=== PATIENT | female | born 1980 | race Two or more races ===

== ENCOUNTER 2024-08-21 10:24 | Emergency (ER) | payer OTHER ==
[~2024-08-21] VITALS: Ht 157.5 cm; Wt 99.0 kg
--- NOTE | 2024-08-21 10:45 | ED.PDOC ---
History of Present Illness HPI Comments This is a 44-year-old female who comes in with chief complaint of some shortness for breath especially when she lays flat. The patient states that she is 36 weeks and is followed by Dr. Burgess. She states that the symptoms started a few days ago and she did developed some fever for three days. Upon arrival, patient was not wheezing and does not look short of breath. The patient has no other complaints at this time. Chief Complaint: Shortness of Breath Time Seen by MD: 10:32 Reviewed Notes: Nurses Notes, Medications, Allergies (No allergies to medications) Information Source: Patient Mode of Arrival: Ambulatory Severity: Mild Timing: Days Duration: Intermittent Prehospital treatment: None Associated signs and symptoms Shortness a breath but no chills. The patient was was complaining of some fever Past Medical History PAST MEDICAL HISTORY: GERD Surgical History: , Denies all surgeries CONSTRUCTION FLAGGER History: No Pertinent CONSTRUCTION FLAGGER History Family History Family History: No family hx of Cancer, No family hx of DM, No family hx of Heart amol Social History Smoker: Non-Smoker Alcohol: Denies ETOH Use Drugs: Denies Drug Use Lives In: Home Constitutional: denies: chills, diaphoresis, fatigue, fever, malaise, sweats, weakness, others EENTM: denies: blurred vision, double vision, ear bleeding, ear discharge, ear drainage, ear pain, ear ringing, eye pain, eye redness, hearing loss, mouth pain, mouth swelling, nasal discharge, nose bleeding, nose congestion, nose pain, photophobia, tearing, throat pain, throat swelling, voice changes, others Respiratory: reports: shortness of breath; denies: cough, hemoptysis, orthopnea, SOB at rest, SOB with excertion, stridor, wheezing, others Cardiovascular: denies: chest pain, dizzy spells, diaphoresis, Dyspnea on exertion, edema, irregular heart beat, left arm pain, lightheadedness, palpitations, PND, syncope, others Gastrointestinal: denies: abdomen distended, abdominal pain, blood streaked bowels, constipated, diarrhea, dysphagia, difficulty swallowing, hematemesis, melena, nausea, poor appetite, poor fluid intake, rectal bleeding, rectal pain, vomiting, others Genitourinary: reports: ; denies: abnormal vagina bleeding, burning, dyspareunia, dysuria, flank pain, frequency, hematuria, incontinence, pain, vagina discharge, urgency, others Neurological: denies: dizziness, fainting, headache, left sided numbness, left sided weakness, numbness, paresthesia, pre-existing deficit, right sided numbness, right sided weakness, seizure, speech problems, tingling, tremors, weakness, others Musculoskeletal: denies: back pain, gout, joint pain, joint swelling, muscle pain, muscle stiffness, neck pain, others Integumetry: denies: bruises, change in color, change in hair/nails, dryness, laceration, lesions, lumps, rash, wounds, others Allergic/Immunocompromised: denies: Difficulty Healing, Frequent Infections, Hives, Itching, others Hematologic/Lymphatic: denies: anemia, blood clots, easy bleeding, easy bruising, swollen glands, others Endocrine: denies: excessive hunger, excessive sweating, excessive thirst, excessive urination, flushing, intolerance to cold, intolerance to heat, unexplained weight gain, unexplained weight loss, others Psychiatric: denies: anxiety, bipolar disorder, depression, hopeless, panic disorder, schizophrenia, sleepless, suicidal, others Physical Exam General Appearance: No Apparent Distress HEENT: Normal ENT Inspection, Pharynx Normal, TMs Normal Neck: Full Range of Motion, Non-Tender, Normal, Normal Inspection Respiratory: Chest Non-Tender, Lungs Clear, No Accessory Muscle Use, No Respiratory Distress, Normal Breath Sounds Cardiovascular: No Edema, No JVD, No Murmur, No Gallop, Normal Peripheral Pulses, Regular Rate/Rhythm Breast Exam: Deferred Gastrointestinal: Non Tender, No Pulsatile Mass, Normal Bowel Sounds, Other (Gravid uterus) Genitalia: Deferred Pelvic: Deferred Rectal: Deferred Extremities: No calf tenderness, Normal capillary refill, Normal inspection, Normal range of motion, Non-tender, No pedal edema Musculoskeletal : Apperance: Normal Neurologic: Alert, water resource engineer II-XII nml as Tested, No Motor Deficits, Normal Affect, Normal Mood, No Sensory Deficits Cerebellar Function: Normal Reflexes: Normal Skin: Dry, Normal Color, Warm Lymphatic: No Adenopathy Was a procedure done? Was a procedure done?: No Differential Dx Considerations may include: Shortness a breath, generalized weakness, X-Ray, Labs, Meds, VS The patient was 96% upon arrival to the emergency department's The patient was being discharged to labor and delivery We did swab the patient for influenza a and influenza B Time of 1ST Reevaluation: 10:44 Reevaluation 1ST: Unchanged Patient Education/Counseling: Diagnosis, Treatment, Prognosis, Need For Follow Up Family Education/Counseling: No Family Present Departure 1 Departure Time of Disposition: 10:44 Impression: Primary Impression: Shortness of breath during Disposition: 01 HOME / SELF CARE / HOMELESS Condition: Fair Discharged With: Self Critical Care Note Critical Care Time?: No Stability Stability form required: No Heart Score Heart Score: Heart Score Response (Comments) Value History N/A 0 EKG N/A 0 Age N/A 0 Risk Factors N/A 0 Troponin N/A 0 Total 0 SHELIA GEE MD Aug 21, 2024 10:45
[2024-08-21 11:41] LABS: Rapid Influenza A Negative (Negative); Rapid Influenza B Negative (Negative)
--- NOTE | 2024-08-21 12:35 | DVH ---
BIOPHYSICAL PROFILE HISTORY: Hyperemesis TECHNIQUE: Multiple transabdominal real-time grayscale sonographic images through the gravid uterus of the fetus with duplex Doppler color flow and M-mode spectral analysis FINDINGS: BIOPHYSICAL PROFILE: breathing score: 2 movement score: 2 tone score: 2 Quantitative KAREN score: 2 (KAREN: 18.5 Cm.) Total score: 8 The cervix was not seen Single live fetus in cephalic presentation. heart rate 130 beats per minute. Grade II anterior fundal placenta without previa or abruption IMPRESSION: Biophysical profile score: 8/8
[2024-08-21] MEDS: LACTATED RINGER'S 1,000 ML IV ONE (14:43)
--- NOTE | 2024-08-21 14:43 | ED.PDOC ---
SOB-HPI HPI Comments 44Y F with PMHx GERD presents to ED for chief complaint SOB x3days with cough, wheezing, and intermittent fever. Pt states symptoms worsen when laying down. Pt has used nebulizer before but has never been diagnosed with asthma. Pt's children have asthma. Pt is currently 36weeks and was cleared by L&D. 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 Pt is being f/u by Dr. Lam and has an appt on 08/25/2024. Chief Complaint: Shortness of Breath Time Seen by MD: 14:20 Reviewed notes: Nurses Notes, Medications, Allergies Information Source: Patient Mode of Arrival: Ambulatory Severity: Moderate Timing: Days Duration: Since onset Context: At Rest PE Risk Factors: None History of: None Modifying Factors: Laying flat Associated Signs and Symptoms: Fever, Wheeze, Cough Past Medical History PAST MEDICAL HISTORY: GERD Surgical History: BREEDER HEN SERVICE TECHNICIAN History: No Pertinent BREEDER HEN SERVICE TECHNICIAN History Family History Family History: No family hx of Cancer, No family hx of DM, No family hx of Heart amol Social History Smoker: Non-Smoker Alcohol: Denies ETOH Use Drugs: Denies Drug Use Lives In: Home Constitutional: reports: fever; denies: chills, diaphoresis, fatigue, malaise, sweats, weakness, others EENTM: denies: blurred vision, double vision, ear bleeding, ear discharge, ear drainage, ear pain, ear ringing, eye pain, eye redness, hearing loss, mouth pain, mouth swelling, nasal discharge, nose bleeding, nose congestion, nose pain, photophobia, tearing, throat pain, throat swelling, voice changes, others Respiratory: reports: cough, shortness of breath, wheezing; denies: hemoptysis, orthopnea, SOB at rest, SOB with excertion, stridor, others Cardiovascular: denies: chest pain, dizzy spells, diaphoresis, Dyspnea on exertion, edema, irregular heart beat, left arm pain, lightheadedness, palpitations, PND, syncope, others Gastrointestinal: denies: abdomen distended, abdominal pain, blood streaked bowels, constipated, diarrhea, dysphagia, difficulty swallowing, hematemesis, melena, nausea, poor appetite, poor fluid intake, rectal bleeding, rectal pain, vomiting, others Genitourinary: reports: ; denies: abnormal vagina bleeding, burning, dyspareunia, dysuria, flank pain, frequency, hematuria, incontinence, pain, vagina discharge, urgency, others Neurological: denies: dizziness, fainting, headache, left sided numbness, left sided weakness, numbness, paresthesia, pre-existing deficit, right sided numbness, right sided weakness, seizure, speech problems, tingling, tremors, weakness, others Musculoskeletal: denies: back pain, gout, joint pain, joint swelling, muscle pain, muscle stiffness, neck pain, others Integumetry: denies: bruises, change in color, change in hair/nails, dryness, laceration, lesions, lumps, rash, wounds, others Allergic/Immunocompromised: denies: Difficulty Healing, Frequent Infections, Hives, Itching, others Hematologic/Lymphatic: denies: anemia, blood clots, easy bleeding, easy bruising, swollen glands, others Endocrine: denies: excessive hunger, excessive sweating, excessive thirst, excessive urination, flushing, intolerance to cold, intolerance to heat, unexplained weight gain, unexplained weight loss, others Psychiatric: denies: anxiety, bipolar disorder, depression, hopeless, panic disorder, schizophrenia, sleepless, suicidal, others All Other Systems: Reviewed and Negative Physical Exam General Appearance: No Apparent Distress, Normal HEENT: Normal ENT Inspection, Pharynx Normal (exccept for postnasal discharge), TMs Normal, Other (clear postnasal drips) Neck: Full Range of Motion, Non-Tender, Normal, Normal Inspection Respiratory: Chest Non-Tender, Lungs Clear, No Accessory Muscle Use, No Respiratory Distress, Normal Breath Sounds Cardiovascular: No Edema, No JVD, No Murmur, No Gallop, Normal Peripheral Pulses, Regular Rate/Rhythm Breast Exam: Deferred Gastrointestinal: No Organomegaly, Non Tender, No Pulsatile Mass, Normal Bowel Sounds, Soft Genitalia: Deferred Pelvic: Deferred Rectal: Deferred Extremities: No calf tenderness, Normal capillary refill, Normal inspection, Normal range of motion, Non-tender, No pedal edema Musculoskeletal : Apperance: Normal Neurologic: Alert, tankage supervisor II-XII nml as Tested, No Motor Deficits, Normal Affect, Normal Mood, No Sensory Deficits Cerebellar Function: Normal Reflexes: Normal Skin: Dry, Normal Color, Warm Lymphatic: No Adenopathy Was a procedure done? Was a procedure done?: No Differential Dx Differential Diagnosis: Anxiety, Asthma, Bronchitis, CHF, COPD, Myocardial infarction, Panic Attack, Pneumonia, Pneumothorax, Pulmonary Embolism, Respiratory Distress, URI X-Ray, Labs, Meds, VS Vital Signs Date Time Temp Pulse Resp B/P (MAP) Pulse Ox O2 Delivery O2 Flow Rate FiO2 08/21/24 11:00 96 08/21/24 10:51 97.7 107 110/74 (86) 95 97.7 08/21/24 10:37 98.3 102 19 107/47 (67) 96 Lab Test 08/21/24 10:42 Range/Units Influenza Type A Antigen Negative Negative Influenza Type B Antigen Negative Negative Time of 1ST Reevaluation: 14:50 Reevaluation 1ST: Unchanged Time of 2ND Reevaluation: 15:18 Reevaluation 2ND: Improved Patient Education/Counseling: Diagnosis, Treatment, Prognosis, Need For Follow Up Family Education/Counseling: No Family Present Additional Information I reviewed the following notes from patient's past medical encounters: None The following tests were ordered, and results were reviewed by me: None Additional Information was gathered from interviewing the following independent historians: None I reviewed and agreed with the following test results read by other providers: None I discussed treatment and results with medical personnel. pt does not have signs of preeclampsia. she is not febrile, has no audible wheezes. she feels wheezing when she is supine. her lungs are clear. she has no edema, calf pain, or asymmetry. she does have clear postnasal discharge, which may be responsible for the sensation of wheezes on supine position. i will start her on ipratropium nasal spray and albuterol as needed Departure 1 Departure Time of Disposition: 10:44 Impression: Primary Impression: Shortness of breath during Additional Impression: Viral URI with cough Disposition: 01 HOME / SELF CARE / HOMELESS Condition: Fair e-Prescriptions No Active Prescriptions or Reported Meds Discharged With: Self Critical Care Note Critical Care Time?: No Stability Stability form required: No Heart Score Heart Score: Heart Score Response (Comments) Value History N/A 0 EKG N/A 0 Age N/A 0 Risk Factors N/A 0 Troponin N/A 0 Total 0 I personally scribed for TANJA LEVY MD ([email or web address]) on 08/21/24 at 14:43. Electron ically submitted by Heike Aguilar ([email or web address]). TANJA LEVY MD Aug 21, 2024 14:43
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
[2024-08-21 14:47] VITALS: BP 107/55; TEMP 98.3
[2024-08-21] MEDS: ALBUTEROL SULF 2.5 MG/0.5ML(0.5%) NEB SOLN NEB ONE (14:53)
[2024-08-21 16:04] VITALS: PULSE 78; RESP 18; O2SAT 98
--- NOTE | 2024-08-21 19:11 | ECG ---
[facility] Test Date: 2024-08-21 Test Time: 11:00:52 Pat Name: GENARO MAZA Department: ER Room: Gender: F Remote Sensing Technologist: KEMAL : 1980 Requested By: SHELIA GEE Order Number: [id number] Reading MD: Syd Chandler Measurements Intervals [place]oten Rate: 96 P: -36 IL: 131 QRS: 48 QRSD: 88 T: 5 QT: 332 QTc: 420 Interpretive Statements Sinus rhythm Electronically Signed On 08-22-2024 13:11:59 PST by Syd Chandler Please click the below link to view image of tracing.
--- NOTE | 2024-08-22 16:04 | DVHDS2 ---
Physician Discharge Progress N Final Diagnosis: sob Operations or Procedures: Operations or Procedures nst,sono Condition on Discharge: Undetermined Disposition: Home Discharge Instructions: Diet: Regular Activity: Light activity Medications: na Follow Up Care: Specialist: to er Discharge Statement: "Patient was advised to return to the ER or call 911 if any headaches, dizz iness, shortness of breath, chest pain, abdominal pain, bleeding, fevers, or worsening of medical condition. Patient was counseled about treatment plan, medications, possible side effects, patientverbalized understanding. All questions were answered to the best of my ability. This discharge took greater then 30 minutes in planning, reviewing documentation, counseling the patient, and discussing with other team members." ILEANA RICCI DO Aug 22, 2024 16:04
== END 2024-08-21 16:07 | disposition home or self-care (01) ==
LOC: ER 10:24 → LDRP 10:37 → UNDOADMOB 10:37 → ER 10:45 → LDRP 11:10 → UNDOADMOB 11:10 → ER 16:07
DX: O99.513 Diseases of the respiratory system complicating pregnancy, third trimester (principal); R06.02 Shortness of breath; J06.9 Acute upper respiratory infection, unspecified; B97.89 Other viral agents as the cause of diseases classified elsewhere; R05.9 Cough, unspecified; K21.9 Gastro-esophageal reflux disease without esophagitis; Z3A.36 36 weeks gestation of pregnancy
CPT/HCPCS: 59025; 76818; 81002; 87804; 93005; 94640; 94760

== ENCOUNTER 2024-09-04 19:09 | Observation (INO) | payer OTHER ==
[~2024-09-04] VITALS: Ht 160 cm; Wt 99.8 kg
--- NOTE | 2024-09-04 19:58 | DVH ---
BIOPHYSICAL PROFILE HISTORY: AMA TECHNIQUE: Multiple transabdominal real-time grayscale sonographic images through the gravid uterus of the fetus with duplex Doppler color flow and M-mode spectral analysis FINDINGS: BIOPHYSICAL PROFILE: breathing score: 2 movement score: 2 tone score: 2 Quantitative KAREN score: 2 (KAREN: 20.6 Cm.) Total score: 8 4/8 Single live fetus in cephalic presentation. heart rate 101 beats per minute. Posterior Grade 3 placenta without previa or abruption Single live fetus at 38 weeks 1 day Biophysical profile score 8/8 corresponding to an BERNABE of 09/17/2024 IMPRESSION: 1. Biophysical profile score: 8/8
== END 2024-09-04 21:08 | disposition home or self-care (01) ==
LOC: LDRP 19:09
PROVIDERS: ADMIT Obstetrics & Gynecology; ATTEND Obstetrics & Gynecology
DX: O21.0 Mild hyperemesis gravidarum (principal); O09.513 Supervision of elderly primigravida, third trimester; Z3A.38 38 weeks gestation of pregnancy; Z79.899 Other long term (current) drug therapy; Z88.5 Allergy status to narcotic agent
CPT/HCPCS: 59025; 76818; 81002; 94760; G0378

== ENCOUNTER → 2024-09-05 | Outpatient (CLI) | payer OTHER ==
[~2024-09-05] MED LIST: DOCU-94 PO; FER325T PO; HYDR-4072 PO; IBUP-1456 PO; PREN-96 PO
[2024-09-05 12:02] LABS: Basophils # (auto) 0 10 ^3/uL (0-0.2); Basophils % (auto) 0.5 % (0.0-2.0); Eosinophils # (auto) 0 10 ^3/uL (0-0.8); Eosinophils % (auto) 0.5 % (0.0-7.0); Hematocrit 35.6 % (36.0-46.0); Hemoglobin 12.2 g/dL (12.2-16.2); Lymphocytes # (auto) 1.4 10 ^3/uL (0.4-5.4); Mean Corpuscular Hemoglobin 28.7 pg (28.0-32.0); Mean Corpuscular Hgb Conc. 34.3 g/dL (32.0-36.0); Mean Corpuscular Volume 83.5 fL (80.0-100.0); Monocytes # (auto) 0.5 10 ^3/uL (0-1.3); Monocytes % (auto) 5.8 % (0.0-12.0); Neutrophils % (auto) 75.2 % (37.0-80.0); Nucleated Red Blood Cells % 0.1 %; Platelet Count (auto) 208 10^3/uL (140-450); Red Blood Cells 4.27 10^6/uL (4.0-5.20); Red Cell Distribution Width 15.6 % (11.8-14.3)
[2024-09-06 06:06] LABS: RPR Non Reactive (Non Reactive)
[2024-09-07 06:06] LABS: Chlamydia Trachomatis, NAA Negative (Negative); Neisseria gonorrhoeae, NAA Negative (Negative)
== END | disposition home or self-care (01) ==
LOC: LAB 09:58
PROVIDERS: ATTEND Obstetrics & Gynecology
DX: Z34.80 Encounter for supervision of other normal pregnancy, unspecified trimester (principal); Z3A.00 Weeks of gestation of pregnancy not specified
CPT/HCPCS: 36415; 85025; 86592

== ENCOUNTER 2024-09-09 04:13 | Inpatient (IN) | payer OTHER ==
[2024-09-08 22:19] LABS: Basophils # (auto) 0 10 ^3/uL (0-0.2); Basophils % (auto) 0.4 % (0.0-2.0); Eosinophils # (auto) 0.1 10 ^3/uL (0-0.8); Eosinophils % (auto) 0.7 % (0.0-7.0); Hematocrit 36.8 % (36.0-46.0); Hemoglobin 12.3 g/dL (12.2-16.2); Lymphocytes # (auto) 2.1 10 ^3/uL (0.4-5.4); Lymphocytes % (auto) 18.3 % (10.0-50.0); Mean Corpuscular Hgb Conc. 33.3 g/dL (32.0-36.0); Monocytes # (auto) 0.8 10 ^3/uL (0-1.3); Monocytes % (auto) 7.2 % (0.0-12.0); Neutrophils # (auto) 8.6 10 ^3/uL (1.6-8.6); Neutrophils % (auto) 73.4 % (37.0-80.0); Platelet Count (auto) 214 10^3/uL (140-450); Red Blood Cells 4.38 10^6/uL (4.0-5.20); Red Cell Distribution Width 15.6 % (11.8-14.3); White Blood Cell 11.7 10^3/uL (4.4-10.8)
[2024-09-08 22:37] LABS: Urine Amorphous Crystal FEW /hpf (None Seen); Urine Bacteria MOD /hpf (None Seen); Urine Blood Negative /uL (Negative); Urine Clarity Clear (Clear); Urine Color Light-Yellow (Yellow); Urine Protein, UAD Negative (Negative); Urine Squamous Epithelial Cell FEW /hpf (<5); Urine Urobilinogen Normal (Negative); Urine WBC 2 /HPF (0-5); Urine pH 6.5 (5.0-9.0)
[2024-09-08 22:38] LABS: INR 0.95 (0.9-1.15); Partial Thromboplastin Time 29.1 SEC (24.5-34.5); Prothrombin Time 10.1 sec (9.3-11.8)
[2024-09-08 22:49] LABS: Alanine Aminotransferase 15 U/L (7-40); Albumin 3.6 g/dL (3.2-4.8); Alkaline Phosphatase 92 U/L (46-116); Anion Gap 10 (5-15); Aspartate Aminotransferase 13 U/L (13-40); BUN/Creatinine Ratio 17.4 (10.0-20.0); Blood Urea Nitrogen 8 mg/dL (9-23); Calcium 9.6 mg/dL (8.7-10.4); Carbon Dioxide 22 mmol/L (20-31); Chloride 105 mmol/L (98-107); Glucose 104 mg/dL (74-106); Potassium 3.8 mmol/L (3.5-5.1); Sodium 137 mmol/L (136-145)
[2024-09-08 22:50] LABS: Bilirubin, Total 0.3 mg/dL (0.2-1.0); Total Protein 6.1 g/dL (5.7-8.2)
[2024-09-08 22:56] LABS: Amphetamine Screen, Urine Neg (NEGATIVE); Barbiturate Scree,Urine Neg (NEGATIVE); Benzodiazephine Screen, Urine Neg (NEGATIVE); Cannabinoid Screen, Urine Neg (NEGATIVE); Cocaine Screen, Urine Neg (NEGATIVE); Opiate Scree,Urine Neg (NEGATIVE); Phencyclidine Screen, Urine Neg (NEGATIVE)
[2024-09-09] VITALS (17 sets, daily range): BP systolic 90–116; BP diastolic 46–71; PULSE 76–95; RESP 16–24; TEMP 98.2–98.8; O2SAT 94–100
[~2024-09-09] VITALS: Ht 157.5 cm; Wt 99.8 kg
[2024-09-09 00:29] LABS: Hepatitis B Surface Antigen Negative (Negative)
[2024-09-09 00:46] LABS: Hepatitis C Antibody Negative (Negative)
--- NOTE | 2024-09-09 05:30 | DVHHP ---
ADMIT DATE: 09/09/2024 CHIEF COMPLAINT: Labor pain. HISTORY OF PRESENT ILLNESS: The patient is a 44-year-old 3, para 2 with a due date of 09/17/2024, estimated gestational age of 38 and 6/7, admitted for early labor. The patient has been coming in complaining of uterine contractions. She had 2 previous C-sections. She wishes to have repeat section. She does not want any tubal ligation. She denies having any vaginal bleeding or rupture of membrane. PAST MEDICAL HISTORY: None. PAST SURGICAL HISTORY: . SOCIAL HISTORY: None. FAMILY HISTORY: None. OBSTETRIC AND GYNECOLOGIC HISTORY: Blood type O positive, rubella immune, two sections. REVIEW OF SYSTEMS: Consistent with HPI. PHYSICAL EXAMINATION: VITAL SIGNS: Stable, afebrile. HEENT: Within normal limits. CARDIOVASCULAR: Regular rate and rhythm. LUNGS: Clear to auscultation. BREASTS: Symmetrical. No masses. ABDOMEN: Gravid. Positive heart. PELVIC: Cervix 1 cm soft. Uterine contractions every 3 to 5 minutes. EXTREMITIES: No clubbing, cyanosis or edema. IMPRESSION: * Intrauterine at 38+ weeks in early labor. * Desires repeat section. * Previous section x 2. * Advanced maternal age. PLAN: Repeat section. Informed consent obtained. Risks, complication of surgery including infection, bleeding, hematoma formation, injury to bowel, bladder, surrounding organs, possibility of DVT, pulmonary embolism, risk of anesthesia discussed with the patient. Options reviewed. All questions answered. The patient fully understands. She wishes to proceed with planned procedure. Possibility of DVT, pulmonary embolism, risk of anesthesia discussed with the patient. Possibility of infection, need for further surgery discussed with the patient. The patient fully understands. She wishes to proceed with planned procedure. All questions answered to patient's satisfaction. DO RAVIN Larsen/GROVER TID: [id number] RECEIPT: [id number]
[2024-09-09] MEDS ORDERED: fentaNYL CITRATE 100 MCG/2 ML VL ONE (06:59)
[2024-09-09] MEDS ORDERED: MORPHINE SULF PF 5 MG/10 ML VIAL ONE (06:59)
[2024-09-09] MEDS: LACTATED RINGER'S 1,000 ML IV ONE (07:00)
[2024-09-09] MEDS ORDERED: ONDANSETRON HCL 4 MG/2 ML VIAL ONE (07:02)
[2024-09-09] MEDS ORDERED: DexAMETHasone SOD PHOS 10MG/1ML VIAL INJ ONE (07:03)
[2024-09-09] MEDS ORDERED: OXYTOCIN 10UNIT/ML 1ML VIAL ONE (07:03)
[2024-09-09] MEDS: GUM (CHEWING) 1 GUM CHEW CHEW ONE (07:15)
[2024-09-09] MEDS ORDERED: ONDANSETRON HCL 4 MG/2 ML VIAL IV PRN (07:15)
[2024-09-09] MEDS ORDERED: KETOROLAC TROMETH 30 MG/ML 1ML VIAL ONE (07:30)
[2024-09-09] MEDS: LACTATED RINGER'S 1,000 ML IV SCH (09:01)
[2024-09-09] MEDS: ceFAZolin 2 GM/D5W50ml 50 ML IV ONE (09:08)
[2024-09-09] MEDS: LIDOCAINE W/ EPINEPHRINE 1% 20ML VIAL ONE (10:36)
[2024-09-09] MEDS: BUPIVACAINE 0.5% P/F INJ 10 ML VIAL ONE (10:37)
[2024-09-09] MEDS: LACT. RINGERS/OXYTOCIN 20UNITS 1,000 ML IV ONE (10:37)
--- NOTE | 2024-09-09 11:38 | DVHOP2 ---
Operative Report DATE OF OPERATION:09/09/24 PREOPERATIVE DIAGNOSES: [iup at 38wks in labor,desires rcs,previous csx2,ama,morbid obesity] POSTOPERATIVE DIAGNOSES: [same,nuchal cordx1] OPERATION PERFORMED: Repeat Section FINDINGS: [b] infant. Apgars of [8] and [9]. Weight crying tone. [clear] amniotic fluid. Placenta and three-vessel were intact. Normal tubes, ovaries, and uterus. . SURGEON: Aarti Lam D.O. MALTHOUSE LABORER: missile technician, oly]. akash ANESTHESIOLOGIST: Екатерина montez ANESTHESIA: [Duramorph spinal, regional]. COMPLICATIONS: [none]. ESTIMATED BLOOD LOSS: [800] mL. BLOOD PRODUCTS USED: [none]. PROCEDURE IN DETAIL: The patient was taken to the operating room, placed in sitting position, and spinal was placed without difficulty. She was then prepped and draped in a sterile fashion. A low Pfannenstiel incision was made scapel. At this point, it was carried down through the rectus fascia, nicked in the midline, and carried laterally. The rectus muscles were in the midline. Peritoneum was identified and entered with sharp dissection. Vesicouterine peritoneum was taken off the lower uterine segment. A lower uterine transverse incision was made with a scalpel down the chorionic membranes, ruptured with hemostat. Infant was in vertex position. One hand was placed in the lower uterine segment. Head was essentially delivered spontaneously. Nose and mouth were bulb suctioned. Shoulders and torso were delivered without difficulty. Again, pharynx, nose, and mouth were re-suctioned with vigorous crying tone. Cord was cut. The infant was handed off to the awaiting Respiratory. At this point, umbilical blood sample was taken. Placenta was removed. Uterus was exteriorized, cleared off all clots and debris, irrigated, and closed with a double layer of 0-Vicryl. The vesicouterine peritoneum was incorporated into this closure. We had complete hemostasis. EBL was [800] mL. The instrument, lap, and sponge count was correct x1. The uterus was placed back into the peritoneum. The peritoneal cavity was re-inspected and the lower uterine incision with good hemostasis. We closed the peritoneum with running continuous of 2-0 Vicryl. The Rectus Fascia was closed with 0-PDS, running continuous, looped-0. The skin was closed undermined, irrigated, and close with tyshawn. CONDITION: The patient's and the 's condition is stable and but guarded. AARTI LAM DO Sep 09, 2024 11:38
--- NOTE | 2024-09-09 11:39 | POSTOP ---
Post-Operative Note Post-Operative Note Preop Diagnosis iup at 38wks in labor,ama,desires rcs Postop Diagnosis: same,nuchal cord Operation performed rcs Specimen baby girl,apgars 8-9 Anesthesia: Regional Anesthesiologist: fred Blood Loss(fluid mgmt) 800ml Surgeon Ileana Lam [employer] Launch Commander kayli Complications & Mgmt none Date 09/09/24 Time 11:38 ILEANA LAM DO Sep 09, 2024 11:39
[2024-09-09] MEDS: ACETAMINOPHEN IV 1000 MG/100ML (10MG/ML) IV PRN (12:08)
[2024-09-09] MEDS: ceFAZolin 1GM/50ML 50 ML IV SCH (15:22)
[2024-09-09] MEDS: diphenhdrAMINE HCL 50 MG/1 ML VL IV PRN (23:02)
[2024-09-09] MEDS: KETOROLAC TROMETH 30 MG/ML 1ML VIAL IV PRN (23:03)
[2024-09-09 23:32] LABS: Basophils # (auto) 0 10 ^3/uL (0-0.2); Basophils % (auto) 0.2 % (0.0-2.0); Eosinophils # (auto) 0 10 ^3/uL (0-0.8); Hematocrit 32.2 % (36.0-46.0); Hemoglobin 10.6 g/dL (12.2-16.2); Lymphocytes # (auto) 1.7 10 ^3/uL (0.4-5.4); Lymphocytes % (auto) 12.4 % (10.0-50.0); Mean Corpuscular Hemoglobin 27.7 pg (28.0-32.0); Mean Corpuscular Hgb Conc. 32.9 g/dL (32.0-36.0); Mean Corpuscular Volume 84.1 fL (80.0-100.0); Monocytes % (auto) 7.5 % (0.0-12.0); Neutrophils # (auto) 11.1 10 ^3/uL (1.6-8.6); Neutrophils % (auto) 79.9 % (37.0-80.0); Platelet Count (auto) 194 10^3/uL (140-450); Red Blood Cells 3.82 10^6/uL (4.0-5.20); Red Cell Distribution Width 15.7 % (11.8-14.3); White Blood Cell 13.8 10^3/uL (4.4-10.8)
[2024-09-10] VITALS (11 sets, daily range): BP systolic 97–121; BP diastolic 51–76; PULSE 79–89; RESP 12–18; TEMP 97.7–98.7; O2SAT 95–98
--- NOTE | 2024-09-10 00:01 | DVHPN2 ---
Progress Note Date Seen: Sep 10, 2024 Subjective S: Pt is feeling good, ambulating well and tolerating clear liquids, barnes catheter in place, passing flatus but no BM yet. vital signs Vital Sign Date Time Temp Pulse Resp B/P (MAP) Pulse Ox O2 Delivery O2 Flow Rate FiO2 09/09/24 21:30 83 16 103/56 (72) 98 09/09/24 19:00 Room Air 09/09/24 18:30 98.5 98.5 09/09/24 08:20 100 Total Intake and Output 09/09/24 09/09/24 09/10/24 15:00 23:00 07:00 Output Total 515 ml 100 ml Balance -515 ml -100 ml medications Current Medications Medications Dose Ordered Sig/Vanessa Route Start Time Stop Time Status Last Admin Dose Admin Lactated Ringer's 1,000 ml @ 125 mls/hr Q8H IV 09/09/24 04:30 09/09/24 09:01 125 MLS/HR Ondansetron HCl 4 mg Q4HP PRN IV 09/09/24 07:15 Acetaminophen 1,000 mg Q8HPRN PRN IV 09/09/24 10:45 09/09/24 20:40 1,000 MG Ketorolac Tromethamine 30 mg Q6HPRN PRN IV 09/09/24 23:00 09/14/24 22:59 09/09/24 23:03 30 MG Diphenhydramine HCl 25 mg Q4HP PRN IV 09/09/24 23:00 09/09/24 23:02 25 MG laboratory and microbiology Laboratory Tests 09/09/24 22:58 09/08/24 21:42 Test 09/08/24 21:42 Range/Units Serum Glucose 104 74-106 mg/dL Objective O: VSS Chest: heart sounds normal and lung sounds clear bilaterally Abd: soft, non-tender, fundus at U/firm/midline, active bowel sounds, no rebound or guarding Incision: steri strips open to air, clean/dry/intact, edges well approximated Ext: Non-tender, No edema, 2+ BLE DTRs Lochia: minimal See lab results Problems(with codes): (1) S/P repeat low transverse (2) Precipitous drop in hematocrit Assessment/Plan A/P: 44yo now POD#1 s/p repeat -Continue with routine PP care -Advance diet as tolerated Plan discussed with: Patient, Spouse JOSE WRIGHT CNM Sep 10, 2024 00:01
[2024-09-10 07:06] LABS: RPR Non Reactive (Non Reactive)
[2024-09-10] MEDS: ceFAZolin 1GM/50ML 50 ML IV SCH (07:14)
[2024-09-10] MEDS ORDERED: HYDROcodone-ACET 5/325MG TAB PO PRN (07:30)
[2024-09-10 09:21] LABS: Basophils # (auto) 0 10 ^3/uL (0-0.2); Basophils % (auto) 0.5 % (0.0-2.0); Eosinophils # (auto) 0.1 10 ^3/uL (0-0.8); Eosinophils % (auto) 1.2 % (0.0-7.0); Hemoglobin 10.2 g/dL (12.2-16.2); Lymphocytes # (auto) 2.5 10 ^3/uL (0.4-5.4); Lymphocytes % (auto) 23.3 % (10.0-50.0); Mean Corpuscular Hemoglobin 28.7 pg (28.0-32.0); Mean Corpuscular Volume 84.5 fL (80.0-100.0); Monocytes # (auto) 0.8 10 ^3/uL (0-1.3); Monocytes % (auto) 7.8 % (0.0-12.0); Neutrophils # (auto) 7.1 10 ^3/uL (1.6-8.6); Neutrophils % (auto) 67.2 % (37.0-80.0); Platelet Count (auto) 175 10^3/uL (140-450); Red Blood Cells 3.55 10^6/uL (4.0-5.20); Red Cell Distribution Width 15.7 % (11.8-14.3); White Blood Cell 10.6 10^3/uL (4.4-10.8)
[2024-09-10] MEDS ORDERED: PHENYLEPHRINE HCL 10 MG/ML VL IV ONE (11:15)
[2024-09-10] MEDS: DOCUSATE CALCIUM 240 MG CAP PO SCH (11:33)
[2024-09-10] MEDS: SIMETHICONE 80 MG CHEWABLE TABLET PO SCH (11:33)
[2024-09-10] MEDS: DOCUSATE SOD 100 MG CAP PO SCH (11:34)
[2024-09-10] MEDS: IBUPROFEN 800 MG TAB PO PRN (12:26)
[2024-09-10] MEDS ORDERED: HYDR-4072 PO (15:45)
[2024-09-10] MEDS ORDERED: IBUP-1456 PO (15:45)
[2024-09-10] MEDS ORDERED: DOCU-94 PO (15:45)
[2024-09-10] MEDS: ACETAMINOPHEN 325 MG TAB PO PRN (22:47)
[2024-09-10] MEDS ORDERED: PREN-96 PO (23:18)
[2024-09-10] MEDS ORDERED: FER325T PO (23:18)
[2024-09-11 02:48] VITALS: BP 101/55; PULSE 81; RESP 24; TEMP 98; O2SAT 95
--- NOTE | 2024-09-11 03:14 | DVHPN2 ---
Progress Note Date Seen: Sep 11, 2024 Subjective S: bleeding is less, eating food without issues, denies lightheaded/dizziness, pain well controlled with oral medications, no concerns with urinating, passing flatus, had BM, ambulating well, vital signs Vital Sign Date Time Temp Pulse Resp B/P (MAP) Pulse Ox O2 Delivery O2 Flow Rate FiO2 09/10/24 22:47 98.5 09/10/24 22:35 86 14 103/64 (77) 95 09/10/24 19:30 Room Air 09/09/24 08:20 100 Total Intake and Output 09/10/24 09/10/24 09/11/24 15:00 23:00 07:00 Output Total 1550 ml Balance -1550 ml medications Current Medications Medications Dose Ordered Sig/Vanessa Route Start Time Stop Time Status Last Admin Dose Admin Ondansetron HCl 4 mg Q4HP PRN IV 09/09/24 07:15 Diphenhydramine HCl 25 mg Q4HP PRN IV 09/09/24 23:00 09/10/24 11:33 25 MG Docusate Calcium 240 mg DAILY PO 09/10/24 10:00 09/10/24 11:33 240 MG Docusate Sodium 100 mg Q12HR PO 09/10/24 10:00 09/10/24 22:31 100 MG Dimethicone 80 mg QID PO 09/10/24 12:00 09/10/24 22:31 80 MG Ibuprofen 800 mg Q8HP PRN PO 09/10/24 07:30 09/10/24 20:28 800 MG Acetaminophen/ Hydrocodone Bitart 1 tab Q4HPRN PRN PO 09/10/24 07:30 Acetaminophen/ Hydrocodone Bitart 2 tab Q4HPRN PRN PO 09/10/24 07:30 Acetaminophen 975 mg Q6HP PRN PO 09/10/24 22:45 09/10/24 22:47 975 MG laboratory and microbiology Laboratory Tests 09/10/24 08:24 09/08/24 21:42 Test 09/08/24 21:42 Range/Units Serum Glucose 104 74-106 mg/dL Objective O: VSS Chest: heart sounds normal and lung sounds clear bilaterally Abd: soft, non-tender, fundus at U/firm/midline, active bowel sounds, no rebound or guarding Incision: steri strips open to air, clean/dry/intact, edges well approximated Ext: Non-tender, No edema, 2+ BLE DTRs Lochia: minimal See lab results Problems(with codes): (1) S/P repeat low transverse (2) Precipitous drop in hematocrit Assessment/Plan A: 44yo now POD#2 s/p REPEAT Rh+ Rubella Immune Pain control with PO medications Bowel regimen P: D/C home today Rx sent to pharmacy precautions and preeclampsia warning signs reviewed F/U with [facility] office in 1 week Plan discussed with: Patient, Spouse JOSE WRIGHT CNM Sep 11, 2024 03:14
--- NOTE | 2024-09-11 03:15 | DVHDS2 ---
Obstetrics Discharge Summary Obstetrics Discharge Summary Date of Admission: Sep 09, 2024 Date of Discharge: Sep 11, 2024 Reason For Admission: Section (Repeat) Procedures: NST Intrapartum Procedures: (LTCS) Procedures: Antibiotics, Hct/date: (09/10/24), Hgb/date: (09/10/24) Operative Complicat: None Discharge Diagnosis: Term -Delivered Discharge Information: Activity (as tolerated, no heavy lifting and nothing in the vagina for 6 weeks), Diet (Routine), Medications (Rx sent), Instructions (Routine), Discharge to (Home), Accompanied by (partner), Discarge date (09/11/24) JOSE WRIGHT CNM Sep 11, 2024 03:15
[2024-09-11 07:00] VITALS: BP 106/66; PULSE 75; RESP 16; TEMP 98; O2SAT 96
[2024-09-11 07:20] VITALS: RESP 18; O2SAT 98
[2024-09-11] MEDS: HYDROcodone-ACET 5/325MG TAB PO PRN (07:59)
[2024-09-11 15:24] VITALS: BP 110/62; PULSE 70; RESP 16; TEMP 98; O2SAT 96
[2024-09-12 11:07] LABS: Treponema Pallidum Ab LC Non Reactive (Non Reactive)
== END 2024-09-11 16:23 | disposition home or self-care (01) | DRG 788 ==
LOC: LDRP 04:13 → PREOBSVTOIN 04:18 → LDRP 09:08 → PREOBSVTOIN 19:33 → EDSTATUS 19:38
PROVIDERS: ADMIT Obstetrics & Gynecology; ATTEND Obstetrics & Gynecology
PROC: 10D00Z1 Extraction of Products of Conception, Low, Open Approach (ICD-10-PCS; principal; 2024-09-09 07:02)
DX: O34.211 Maternal care for low transverse scar from previous cesarean delivery (principal); O69.81X0 Labor and delivery complicated by cord around neck, without compression, not applicable or unspecified; O99.214 Obesity complicating childbirth; E66.01 Morbid (severe) obesity due to excess calories; Z3A.38 38 weeks gestation of pregnancy; Z37.0 Single live birth
CPT/HCPCS: 36415; 59025; 59409; 80053; 80307; 81001; 81002; 85025; 85610; 85730; 86592; 86780; 86803; 86850; 86900; 86901; 87340; 94760; 94762; 96360; 96361; 96365; 96366; 96372; 96374; 96375; G0378; J0131; J1100; J1885; J2405; J2590; J3490